=== PATIENT | female | born 1970 | race Caucasian/White ===

== ENCOUNTER 2018-02-24 00:58 | Emergency (ER) | payer MEDICAID ==
[~2018-02-24] VITALS: Ht 160 cm; Wt 65.0 kg
[2018-02-24] MEDS ORDERED: LIDOCAINE-MPF 2%, 2ML ONE ×2 (01:30→01:41)
[2018-02-24] MEDS ORDERED: LIDOCAINE 2%, 20ML INFIL ONE (01:30)
[2018-02-24] MEDS ORDERED: IBUPROFEN 200 MG TABLET ONE (02:39)
[2018-02-24] MEDS ORDERED: BACITRACIN ZINC OINT 500U/GM, 0.9 GM ONE (02:39)
[2018-02-24 02:46] VITALS: BP 122/64
[2018-02-24] MEDS ORDERED: IBUPROFEN 200 MG TABLET PO ONE (03:00)
== END 2018-02-24 02:48 | disposition home or self-care (01) ==
LOC: ED 02:40
DX: S61.411A Laceration without foreign body of right hand, initial encounter (principal); F17.200 Nicotine dependence, unspecified, uncomplicated; W45.8XXA Other foreign body or object entering through skin, initial encounter; Y93.89 Activity, other specified; Y92.009 Unspecified place in unspecified non-institutional (private) residence as the place of occurrence of the external cause; Y99.8 Other external cause status
CPT/HCPCS: 12001; 99284